=== PATIENT | female | born 1940 | race Caucasian/White ===

== ENCOUNTER 2019-11-21 02:47 | Emergency (ER) | payer MEDICARE ==
[~2019-11-21] VITALS: Ht 154.9 cm; Wt 63.5 kg
--- NOTE | 2019-11-21 03:58 | Emergency Department Note ---
History of Present Illnes History of Present Illness Chief Complaint: Extremity Trauma/Pain History of Present Illness This is a 79 year old female arrives to the ED bilateral lower extremity swelling, patient states she is not taking her Lasix at home because she cannot afford it. Sensation states she was recently discharged from [facility]. Patient denies any chest pain or shortness of breath. Patient states she hasn't taken her Lasix in about a week. . Historian: Patient Arrival Mode: [employer] Wigs Required: No Onset (how long ago): day(s) Duration (how long): day(s) Timing of current episode: constant Progression: unchanged Past Medical/Family History Physician Review I have reviewed the patient's past medical and family history. Any updates have been documented here. Past Medical History Recent Fever: No Clinical Suspicion of Infectio: No New/Unexplained Change in Ment: No Past Medical History: Hypertension, COPD, CHF, TIA, Anemia Other Medical History: PSORIASIS BRONCHITIS SVT Past Surgical History: Other Surgery: X4 EYE SX Social History Smoking Cessation: Former smoker Alcohol Use: None Any Illegal Drug Use: No Physically hurt or threatened: No Other Any Pre-Existing Lines (PICC,: No Review of Systems Review of Systems Constitutional: Reports no symptoms EENTM: Reports no symptoms Cardiovascular: Reports no symptoms Respiratory: Reports no symptoms Gastrointestinal: Reports no symptoms Genitourinary: Reports no symptoms Musculoskeletal: Reports as per HPI, Reports joint swelling Integumentary: Reports no symptoms Neurological: Reports no symptoms Psychological: Reports no symptoms Endocrine: Reports no symptoms Hematological/Lymphatic: Reports no symptoms Physical Exam Related Data Allergies: Coded Allergies: Penicillins (Verified Allergy, Intermediate, 11/21/19) diphenhydramine (Verified Allergy, Intermediate, 11/21/19) Triage Vital Signs Vital Signs Date Time Temp Pulse Resp B/P (MAP) Pulse Ox O2 Delivery O2 Flow Rate FiO2 11/21/19 03:06 99.1 108 20 164/87 100 Nasal Cannula 3.0 Vital signs reviewed: Yes Physical Exam CONSTITUTIONAL Constitutional: Present well-developed, Present well-nourished HENT HENT: Present normocephalic, Present atraumatic, Present oropharynx clear/moist, Present nose normal HENT L/R: Present left ext ear normal, Present right ext ear normal EYES Eyes: Reports PERRL, Reports conjunctivae normal NECK Neck: Present ROM normal PULMONARY Pulmonary: Present effort normal, Present breath sounds normal CARDIOVASCULAR Cardiovascular: Present regular rhythm, Present heart sounds normal, Present capillary refill normal, Present normal rate GASTROINTESTINAL Abdominal: Present soft, Present nontender, Present bowel sounds normal GENITOURINARY Genitourinary: Present exam deferred SKIN Skin: Present warm, Present dry MUSCULOSKELETAL Musculoskeletal: Present edema (+1) NEUROLOGICAL Neurological: Present alert, Present oriented x 3, Present no gross motor or sensory deficits PSYCHOLOGICAL Psychological: Present mood/affect normal, Present judgement normal Assessment & Plan Medical Decision Making MDM 79-year-old well-appearing female arrived to the ED of bilateral lower extremity pitting edema, noncompliant Lasix, Lasix prescription given as well as a coupon code. Patient informed that the Lasix will posture about $4. Stressed importance of compliance and diuresis to keep pedal edema in check. Patient expressed understanding, has outpatient cardiology follow-up. Assessment & Plan Final Impression: (1) CHF (congestive heart failure) Depart Disposition: HOME, SELF-CARE Last Vital Signs Date Time Temp Pulse Resp B/P (MAP) Pulse Ox O2 Delivery O2 Flow Rate FiO2 11/21/19 03:06 99.1 108 20 164/87 100 Nasal Cannula 3.0 STANLEY BAUER, Nov 21, 2019 03:58
== END 2019-11-21 04:26 | disposition home or self-care (01) ==
LOC: EDBD 02:47 → ER 03:35
DX: I50.9 Heart failure, unspecified (principal); R50.9 Fever, unspecified; I10 Essential (primary) hypertension; J44.9 Chronic obstructive pulmonary disease, unspecified; L40.9 Psoriasis, unspecified; Z86.73 Personal history of transient ischemic attack (TIA), and cerebral infarction without residual deficits
CPT/HCPCS: 93005; 99284